=== PATIENT | female | born 1985 | race Caucasian/White ===

== ENCOUNTER 2021-04-03 20:31 | Emergency (ER) | payer OTHER ==
[~2021-04-03] VITALS: Ht 154.9 cm; Wt 81.6 kg
[2021-04-03 20:50] VITALS: BP 132/80
--- NOTE | 2021-04-03 20:50 | NUR ---
TO BED AMBULATORY
--- NOTE | 2021-04-03 20:55 | NUR ---
PT. IS A 35 Y/O FEMALE THAT CAME INTO ED WITH C/O OF LOWER ABDOMINAL PAIN. PT. STATES THAT SHE HAS BEEN HAVING "UTI SYMPTOMS" AND HAD 2 FULL ROUNDS OF ANTIBIOTICS (KEFLEX, BACTRIM) IN THE LAST MONTH AND NOTHING HAS HELPED. PT. DENIES BURNING SENSATION WHEN PEEING OR ITCHINESS, BUT ADMITS TO FREQUENCY AND URGENCY TO URINATE. PT. STATES SHE HAS LOWER ABDOMINAL PAIN AND LOWER BACK PAIN WELL. PT. RATES PAIN AT 8/10 ON THE PAIN SCALE AT THIS TIME. DENIES N/V/D; SKIN IS PINK/WARM/DRY; AAOX4 WITH EVEN AND STEADY GAIT; HR EVEN AND REGULAR; PT DENIES ANY FEVER, CP, SOB, OR COUGH AT THIS TIME; VSS; PATIENT POSITIONED FOR COMFORT; HOB ELEVATED; BEDRAILS UP X2; BED DOWN. ER MD MADE AWARE OF PT STATUS. PMH: DENIES ALLERGIES: PATRICK
[2021-04-03 21:43] LABS: APPEARANCE,URINE CLEAR (CLEAR); BILIRUBIN,URINE NEGATIVE (NEGATIVE); BLOOD, URINE NEGATIVE (NEGATIVE); COLOR,URINE YELLOW (YELLOW); LEUKOCYTE ESTERASE ,URINE NEGATIVE (NEGATIVE); NITRITE, URINE NEGATIVE (NEGATIVE); UGLUCOSE NEGATIVE (NEGATIVE)
[2021-04-03] MEDS ORDERED: NAPR-54 PO (22:05)
[2021-04-03] MEDS ORDERED: PHEN-1877 PO (22:05)
--- NOTE | 2021-04-03 22:40 | NUR ---
NO NURSING INTERVENTIONS NEEDED.
[2021-04-03 23:00] VITALS: BP 132/80
--- NOTE | 2021-04-03 23:00 | NUR ---
Patient discharged with v/s stable. Written and verbal after care instructions given and explained. Patient alert, oriented and verbalized understanding of instructions. Ambulatory with steady gait. All questions addressed prior to discharge. ID band removed. Patient advised to follow up with PMD. Rx of PYRIDIUM AND NAPROXEN given. Patient educated on indication of medication including possible reaction and side effects. Opportunity to ask questions provided and answered.
== END 2021-04-03 23:00 | disposition home or self-care (01) ==
LOC: MED 20:31
DX: R30.0 Dysuria (principal); R10.2 Pelvic and perineal pain; R39.15 Urgency of urination; E07.9 Disorder of thyroid, unspecified
CPT/HCPCS: 36415; 76856; 81003; 81025; 87491; 99284